=== PATIENT | female | born 1940 | race Caucasian/White ===

== ENCOUNTER 2021-10-27 20:04 | Inpatient (IN) | payer MEDICARE ==
[~2021-10-27] VITALS: Ht 152.4 cm; Wt 51.3 kg
[2021-10-27 20:42] LABS: BASOPHILS % (AUTO) 0.5 % (0.0-5.0); EOSINOPHILS % (AUTO) 1.1 % (0.0-8.0); HEMATOCRIT 42.5 % (36-48); LYMPHOCYTES % (AUTO) 27.3 % (21.0-51.0); MEAN CORPUSCULAR HEMOGLOBIN 31.8 pg (27.0-33.0); MEAN CORPUSCULAR HGB CONC 34.4 g/dL (32.0-36.0); MEAN CORPUSCULAR VOLUME 92.6 fL (79-99); MONOCYTES % (AUTO) 7.9 % (3.0-13.0); NEUTROPHILS % (AUTO) 62.7 % (40.0-77.0); PLATELET COUNT (AUTO) 153 K/uL (130-400); RED BLOOD CELL COUNT(AUTO) 4.59 MIL/uL (4.00-5.50); RED CELL DISTRIBUTION WIDTH 12.3 % (11.0-15.5); WHITE BLOOD COUNT (AUTO) 7.6 K/uL (4.8-10.8)
[2021-10-27 20:54] LABS: CREATININE 0.7 mg/dL (0.5-1.5); POTASSIUM 3.5 mmol/L (3.5-5.1)
[2021-10-27 20:55] LABS: INR 1.06 (0.85-1.15); PROTHROMBIN TIME 11.5 SEC (9.6-11.6)
[2021-10-27 21:01] LABS: ALBUMIN 3.7 g/dL (3.5-5.0); BILIRUBIN,TOTAL 0.8 mg/dL (0.2-1.0); TOTAL PROTEIN, SERUM 7.5 g/dL (6.0-8.3)
[2021-10-27 21:05] LABS: B-TYPE NATRIURETIC PEPTIDE 273 pg/mL (0-100)
[2021-10-27] MEDS ORDERED: CLOPIDOGREL 300MG TAB PO ONE (23:30)
[2021-10-27] MEDS: NITROGLYCERIN 1GM OINT 1 INCH/1GM TD SCH (23:30)
[2021-10-27] MEDS ORDERED: 0.9%NACL 1000ML 1,000 ML IV SCH (23:30)
[2021-10-27] MEDS ORDERED: ONDANSETRON 4MG INJ IV PRN (23:30)
[2021-10-28] VITALS (11 sets, daily range): BP systolic 112–158; BP diastolic 57–93
[2021-10-28] MEDS ORDERED: HEPARIN 25,000 UNITS/250ML D5W 250 ML IV SCH (00:30)
[2021-10-28] MEDS ORDERED: PHARMACY COMMUNICATION MISC SCH (00:30)
[2021-10-28] MEDS ORDERED: HEPARIN 5,000 UNIT VIAL SQ PRN (00:30)
[2021-10-28 01:07] LABS: INR 1.09 (0.85-1.15); PARTIAL THROMBOPLASTIN TIME 23.4 SEC (26.3-35.5); PROTHROMBIN TIME 11.8 SEC (9.6-11.6)
[2021-10-28] MEDS ORDERED: CLOPIDOGREL 300MG TAB ONE (01:30)
[2021-10-28 04:09] LABS: BASOPHILS % (AUTO) 0.7 % (0.0-5.0); EOSINOPHILS % (AUTO) 0.5 % (0.0-8.0); HEMATOCRIT 39.4 % (36-48); LYMPHOCYTES % (AUTO) 22.7 % (21.0-51.0); MEAN CORPUSCULAR HEMOGLOBIN 32.2 pg (27.0-33.0); MEAN CORPUSCULAR HGB CONC 34.8 g/dL (32.0-36.0); MEAN CORPUSCULAR VOLUME 92.7 fL (79-99); MONOCYTES % (AUTO) 7.7 % (3.0-13.0); NEUTROPHILS % (AUTO) 68.1 % (40.0-77.0); PLATELET COUNT (AUTO) 160 K/uL (130-400); RED BLOOD CELL COUNT(AUTO) 4.25 MIL/uL (4.00-5.50); RED CELL DISTRIBUTION WIDTH 12.2 % (11.0-15.5); WHITE BLOOD COUNT (AUTO) 8.6 K/uL (4.8-10.8)
[2021-10-28 04:40] LABS: CREATININE 0.6 mg/dL (0.5-1.5); MAGNESIUM 1.6 mg/dL (1.80-2.40); PHOSPHORUS 4.1 mg/dL (2.5-4.9); THYROID STIMULATING HORMONE 2.04 uIU/mL (0.36-3.74)
[2021-10-28] MEDS ORDERED: POTASSIUM CHLORIDE 20MEQ/100ML 100 ML IV PRN ×2 (05:00)
[2021-10-28] MEDS ORDERED: LIDOCAINE HCL-MPF 1% 2ML VIAL IV PRN ×2 (05:00)
[2021-10-28] MEDS ORDERED: HYDR12.54 PO (06:16)
[2021-10-28] MEDS ORDERED: LISI40TA9 PO (06:16)
[2021-10-28] MEDS ORDERED: ASPI-1443 PO (06:18)
[2021-10-28] MEDS ORDERED: ATOR40TA71 PO (06:18)
[2021-10-28] MEDS ORDERED: METO50 PO (06:18)
[2021-10-28] MEDS: MAGNESIUM 2GM PREMIX 50ML 50 ML IV PRN (06:22)
[2021-10-28] MEDS: KCL 20 MEQ ERTAB PO PRN ×4 (06:24→22:14)
[2021-10-28] MEDS: NITROGLYCERIN 1GM OINT 1 INCH/1GM TD SCH (07:02)
[2021-10-28] MEDS ORDERED: CLOPIDOGREL 75MG TAB PO SCH (09:00)
[2021-10-28] MEDS ORDERED: ENOXAPARIN SODIUM 40 MG/0.4 ML SYRINGE SQ SCH (09:00)
[2021-10-28 09:08] LABS: APPEARANCE,URINE Clear (CLEAR); BILIRUBIN,URINE Negative (NEGATIVE); COLOR,URINE Yellow (YELLOW); GLUCOSE, URINE (UA) Negative (NEGATIVE); KETONES,URINE 40 mg/dL (NEGATIVE); LEUKOCYTE ESTERASE ,URINE Moderate (NEGATIVE); NITRATE,URINE Negative (NEGATIVE); OCCULT BLOOD,URINE Negative (NEGATIVE); PH,URINE 6.5 (5.0-8.0); PROTEIN,URINE Negative (NEGATIVE)
[2021-10-28] MEDS: ASPIRIN 81MG CHEW TAB PO SCH (09:09)
[2021-10-28] MEDS: FAMOTIDINE 20MG TAB PO SCH (09:09)
[2021-10-28 09:36] LABS: BACTERIA,URINE Rare /HPF (None Seen); RBC,URINE 0-1 /HPF (0-1); SQUAMOUS EPITHELIAL CELL,UR Rare /HPF (0-2)
[2021-10-28] MEDS ORDERED: LIDOCAINE HCL 1% 20 ML VIAL ONE (09:57)
[2021-10-28] MEDS ORDERED: BIVALIRUDIN 250 MG/VIAL IV ONE (09:57)
[2021-10-28] MEDS ORDERED: IOHEXOL 350 MG/ML 100ML INFUS..BTL IV ONE (09:58)
[2021-10-28] MEDS ORDERED: HEPARIN 10,000 UNIT/10ML (1,000 UNIT/ML) VIAL ONE (09:58)
[2021-10-28] MEDS ORDERED: NITROGLYCERIN 50MG VIAL ONE (09:58)
[2021-10-28] MEDS ORDERED: IOHEXOL-350 50ML VIAL IV ONE (09:58)
[2021-10-28] MEDS ORDERED: MIDAZOLAM HCL 1 MG/ML 2ML VIAL ONE (10:39)
[2021-10-28] MEDS ORDERED: FENTANYL CITRATE PF 50 MCG/1 ML 2ML VIAL ONE ×2 (10:39→12:07)
[2021-10-28] MEDS ORDERED: LISINOPRIL 40 MG TABLET PO SCH (10:53)
[2021-10-28 10:59] LABS: CREATININE 0.7 mg/dL (0.5-1.5); POTASSIUM 3.3 mmol/L (3.5-5.1)
[2021-10-28 11:14] LABS: CHOLESTEROL 148 mg/dL (<200); HDL CHOLESTEROL 67 mg/dL (35-85); LDL DIRECT 69 mg/dL (0-99); TRIGLYCERIDES 55 mg/dL (30-200)
[2021-10-28] MEDS ORDERED: 0.9%NACL 1000ML 1,000 ML IV SCH (13:00)
[2021-10-28 15:37] LABS: ABG BASE EXCESS -2.7 mmol/L (-2.0-3.0); ABG HCO3 21.6 mmol/L (21.0-28.0); ABG OXYGEN SATURATION 96.6 % (95.0-99.0); ABG PCO2 36 mmHg (32-45)
[2021-10-28] MEDS: ATORVASTATIN 40 MG TABLET PO SCH (20:47)
[2021-10-28] MEDS: METOPROLOL TARTRATE 25 MG TAB PO SCH (20:47)
[2021-10-29] VITALS (14 sets, daily range): BP systolic 81–186; BP diastolic 41–81
[2021-10-29 04:22] LABS: HEMATOCRIT 37.3 % (36-48); MEAN CORPUSCULAR HEMOGLOBIN 31.5 pg (27.0-33.0); MEAN CORPUSCULAR HGB CONC 33.8 g/dL (32.0-36.0); MEAN CORPUSCULAR VOLUME 93.3 fL (79-99); RED CELL DISTRIBUTION WIDTH 12.3 % (11.0-15.5); WHITE BLOOD COUNT (AUTO) 5.5 K/uL (4.8-10.8)
[2021-10-29 04:43] LABS: ALBUMIN 3.1 g/dL (3.5-5.0); BILIRUBIN,TOTAL 0.9 mg/dL (0.2-1.0); CREATININE 0.7 mg/dL (0.5-1.5); POTASSIUM 4.6 mmol/L (3.5-5.1); TOTAL PROTEIN, SERUM 6.6 g/dL (6.0-8.3)
[2021-10-29] MEDS ORDERED: NOREPINEPHRINE BITARTRATE 8 MG in DEXTROSE 5%-WATER 250 ML IV PRN (07:00)
[2021-10-29] MEDS ORDERED: EPINEPHRINE PF 1MG AMP 10 MG in 0.9% NACL 250ML 240 ML IV PRN ×2 (07:00→21:00)
[2021-10-29] MEDS ORDERED: AMINOCAPROIC ACID 5,000MG VIAL 15,000 MG in 0.9% NACL 500ML IV.SOLN 420 ML IV PRN (07:00)
[2021-10-29] MEDS: FAMOTIDINE 20MG TAB PO SCH (08:01)
[2021-10-29] MEDS: METOPROLOL TARTRATE 25 MG TAB PO SCH (08:01)
[2021-10-29] MEDS: ASPIRIN 81MG CHEW TAB PO SCH (08:01)
[2021-10-29] MEDS ORDERED: SODIUM BICARB 50MEQ 50ML VIAL 100 ML ONE ×2 (14:36→18:38)
[2021-10-29] MEDS ORDERED: NITROGLYCERIN 50MG/D5W 250ML 1 BOT ONE (14:39)
[2021-10-29] MEDS: CEFAZOLIN SODIUM 1 GM VIAL IVP PRN ×2 (15:32→18:50)
[2021-10-29] MEDS ORDERED: 0.9%NACL 1000ML 1,000 ML IV ONE ×2 (15:33→20:50)
[2021-10-29] MEDS ORDERED: ESMOLOL HCL 10 MG/ML 10 ML VIAL ONE ×2 (18:38→21:10)
[2021-10-29] MEDS ORDERED: HEPARIN 10,000 UNIT/10ML (1,000 UNIT/ML) VIAL ONE (18:38)
[2021-10-29] MEDS ORDERED: AMINOCAPROIC ACID 5,000MG VIAL ONE (18:38)
[2021-10-29] MEDS ORDERED: LIDOCAINE PF 100MG/5ML (2%) SYRINGE 5ML ONE (18:38)
[2021-10-29] MEDS ORDERED: NOREPINEPHRINE BITARTRATE 1 MG/1 ML ML IV ONE (18:38)
[2021-10-29] MEDS ORDERED: EPINEPHRINE PF 1MG AMP ONE (18:38)
[2021-10-29] MEDS ORDERED: PROTAMINE SULFATE 10 MG/ML 25ML VIAL IV ONE (18:38)
[2021-10-29] MEDS ORDERED: PROPOFOL 10 MG/ML 20ML VIAL IV ONE (18:38)
[2021-10-29] MEDS ORDERED: ROCURONIUM 10MG/1ML SYR 10 MG/ML ML ONE (18:39)
[2021-10-29] MEDS ORDERED: FENTANYL CITRATE PF 50 MCG/1 ML 20ML VIAL IJ ONE (18:52)
[2021-10-29] MEDS ORDERED: KETAMINE 50MG/ML SYRINGE 50 MG/ML DISP.SYRIN IV ONE (18:52)
[2021-10-29] MEDS ORDERED: MIDAZOLAM HCL 1 MG/ML 2ML VIAL ONE (18:52)
[2021-10-29] MEDS ORDERED: CEFAZOLIN SODIUM 1 GM VIAL ONE ×2 (18:56)
[2021-10-29] MEDS ORDERED: PAPAVERINE HCL 30 MG/ML 2ML VIAL ONE (18:56)
[2021-10-29 19:36] LABS: ABG BASE EXCESS -11.9 mmol/L (-2.0-3.0); ABG HCO3 13.8 mmol/L (21.0-28.0); ABG OXYGEN SATURATION 99.6 % (95.0-99.0); ABG PCO2 31 mmHg (32-45)
[2021-10-29] MEDS ORDERED: DEXTROSE 50%-WATER 50 ML DISP.SYRIN IV ONE (19:46)
[2021-10-29] MEDS ORDERED: SODIUM BICARB 50MEQ 50ML VIAL 150 ML ONE (19:52)
[2021-10-29 19:59] LABS: ABG BASE EXCESS 2.9 mmol/L (-2.0-3.0); ABG HCO3 29.1 mmol/L (21.0-28.0); ABG OXYGEN SATURATION 99.6 % (95.0-99.0); ABG PCO2 53 mmHg (32-45)
[2021-10-29 20:51] LABS: ABG BASE EXCESS -4.5 mmol/L (-2.0-3.0); ABG HCO3 21.9 mmol/L (21.0-28.0); ABG OXYGEN SATURATION 99.4 % (95.0-99.0); ABG PCO2 46 mmHg (32-45)
[2021-10-29] MEDS ORDERED: SODIUM BICARB 50MEQ 50ML VIAL 50 ML ONE (20:55)
[2021-10-29] MEDS ORDERED: EPHEDRINE SULFATE 50 MG/ML AMPULE ONE (20:57)
[2021-10-29] MEDS ORDERED: ACETAMINOPHEN 650 MG SUPPOSITORY RC PRN (21:00)
[2021-10-29] MEDS ORDERED: ACETAMINOPHEN 325 MG TAB PO PRN (21:00)
[2021-10-29] MEDS ORDERED: FAMOTIDINE 20MG VIAL IV SCH (21:00)
[2021-10-29] MEDS ORDERED: ONDANSETRON 4MG INJ IV PRN (21:00)
[2021-10-29] MEDS ORDERED: GLUCAGON 1MG KIT 1 MG ML IM PRN (21:00)
[2021-10-29] MEDS ORDERED: 0.9%NACL 1000ML 1,000 ML IV SCH (21:00)
[2021-10-29] MEDS ORDERED: INSULIN REGULAR, HUMAN 3ML 100 UNIT in 0.9%NACL 100ML 99 ML IV SCH ×2 (21:00)
[2021-10-29] MEDS ORDERED: ALBUMIN (HUMAN) 5% 250 ML IV PRN (21:00)
[2021-10-29] MEDS ORDERED: NOREPINEPHRIN 4MG/NS 250ML 250 ML IV PRN (21:00)
[2021-10-29] MEDS ORDERED: 0.9% NACL 500ML IV.SOLN 500 ML IV SCH (21:00)
[2021-10-29] MEDS ORDERED: 0.9%NACL 10ML VIAL IVP PRN (21:00)
[2021-10-29] MEDS ORDERED: AMINOCAPROIC ACID 5,000MG VIAL 15,000 MG in 0.9% NACL 250ML 250 ML IV SCH (21:00)
[2021-10-29] MEDS: ATORVASTATIN 40 MG TABLET PO SCH (21:00)
[2021-10-29] MEDS ORDERED: TRAMADOL HCL 50 MG TABLET PO PRN (21:00)
[2021-10-29] MEDS ORDERED: PROPOFOL 1000 MG/100 ML 100 ML IV PRN (21:00)
[2021-10-29] MEDS ORDERED: DEXTROSE 50%-WATER 50 ML DISP.SYRIN IV PRN (21:00)
[2021-10-29] MEDS ORDERED: MORPHINE 2 MG SYG IV PRN ×2 (21:00)
[2021-10-29] MEDS ORDERED: POTASSIUM PHOS 15 mMOL+NS250ML 250 ML IV PRN (21:00)
[2021-10-29] MEDS ORDERED: PHARMACY COMMUNICATION MISC SCH ×2 (21:30)
[2021-10-29 21:55] LABS: ABG BASE EXCESS -5.9 mmol/L (-2.0-3.0); ABG HCO3 19.5 mmol/L (21.0-28.0); ABG PCO2 38 mmHg (32-45)
[2021-10-29] MEDS: SODIUM BICARB 50MEQ 50ML VIAL IV PRN ×3 (22:05→23:58)
[2021-10-29] MEDS: POTASSIUM CHLORIDE 20MEQ/100ML 100 ML IV PRN ×3 (22:05→23:41)
[2021-10-29 22:07] LABS: HEMATOCRIT 24.9 % (36-48); MEAN CORPUSCULAR HEMOGLOBIN 32.2 pg (27.0-33.0); MEAN CORPUSCULAR HGB CONC 33.7 g/dL (32.0-36.0); MEAN CORPUSCULAR VOLUME 95.4 fL (79-99); RED BLOOD CELL COUNT(AUTO) 2.61 MIL/uL (4.00-5.50); RED CELL DISTRIBUTION WIDTH 12.4 % (11.0-15.5); WHITE BLOOD COUNT (AUTO) 15.1 K/uL (4.8-10.8)
[2021-10-29 22:26] LABS: INR 1.48 (0.85-1.15); PROTHROMBIN TIME 15.6 SEC (9.6-11.6)
[2021-10-29 22:27] LABS: CREATININE 0.7 mg/dL (0.5-1.5); MAGNESIUM 1.4 mg/dL (1.80-2.40); PARTIAL THROMBOPLASTIN TIME 33.1 SEC (26.3-35.5); PHOSPHORUS 4.3 mg/dL (2.5-4.9)
[2021-10-29 22:31] LABS: POTASSIUM 2.9 mmol/L (3.5-5.1)
[2021-10-29 22:48] LABS: ABG BASE EXCESS 4.3 mmol/L (-2.0-3.0); ABG HCO3 28.9 mmol/L (21.0-28.0); ABG PCO2 44 mmHg (32-45)
[2021-10-29] MEDS: MAGNESIUM 2GM PREMIX 50ML 50 ML IV PRN (22:48)
[2021-10-29] MEDS: CALCIUM GLUC 1GM 1 GM in 0.9%NACL 50ML 50 ML IV PRN (22:54)
[2021-10-29] MEDS ORDERED: ALBUMIN (HUMAN) 5% 250 ML IV ONE (23:12)
[2021-10-29] MEDS ORDERED: AMIODARONE 900MG VIAL IV ONE (23:22)
[2021-10-29] MEDS ORDERED: DEXTROSE 5%-WATER 100 ML IV ONE (23:23)
[2021-10-29] MEDS ORDERED: AMIODARONE 150MG VIAL ONE (23:24)
[2021-10-29] MEDS ORDERED: DEXTROSE 5%-WATER 500 ML IV ONE (23:25)
[2021-10-29] MEDS ORDERED: AMIODARONE 900MG VIAL 360 MG in DEXTROSE 5%-WATER 200 ML IV SCH (23:30)
[2021-10-29] MEDS ORDERED: AMIODARONE 900MG VIAL 150 MG in DEXTROSE 5%-WATER 100 ML IV SCH (23:30)
[2021-10-29] MEDS ORDERED: AMIODARONE 900MG VIAL 540 MG in DEXTROSE 5%-WATER 300 ML IV PRN (23:30)
[2021-10-29 23:55] LABS: ABG BASE EXCESS -1.7 mmol/L (-2.0-3.0); ABG HCO3 23.5 mmol/L (21.0-28.0); ABG OXYGEN SATURATION 98.1 % (95.0-99.0); ABG PCO2 42 mmHg (32-45)
[2021-10-30] VITALS (83 sets, daily range): BP systolic 28–196; BP diastolic 1–100
[2021-10-30] MEDS: SODIUM BICARB 50MEQ 50ML VIAL IV PRN (00:02)
[2021-10-30] MEDS: CALCIUM GLUC 1GM 1 GM in 0.9%NACL 50ML 50 ML IV PRN ×2 (00:38→05:25)
[2021-10-30 00:57] LABS: ABG BASE EXCESS -0.1 mmol/L (-2.0-3.0); ABG HCO3 24.8 mmol/L (21.0-28.0); ABG OXYGEN SATURATION 97.5 % (95.0-99.0); ABG PCO2 42 mmHg (32-45)
[2021-10-30] MEDS: MAGNESIUM 2GM PREMIX 50ML 50 ML IV PRN (00:58)
[2021-10-30] MEDS: CEFAZOLIN SODIUM 1 GM VIAL IV SCH ×3 (01:59→19:22)
[2021-10-30 02:11] LABS: ABG BASE EXCESS -0.5 mmol/L (-2.0-3.0); ABG HCO3 24.2 mmol/L (21.0-28.0); ABG OXYGEN SATURATION 98.3 % (95.0-99.0); ABG PCO2 40 mmHg (32-45)
[2021-10-30] MEDS: POTASSIUM CHLORIDE 20MEQ/100ML 100 ML IV PRN ×4 (02:12→05:50)
[2021-10-30 03:03] LABS: ABG BASE EXCESS 1.3 mmol/L (-2.0-3.0); ABG HCO3 25.6 mmol/L (21.0-28.0); ABG OXYGEN SATURATION 98.6 % (95.0-99.0); ABG PCO2 39 mmHg (32-45)
[2021-10-30 03:36] LABS: HEMATOCRIT 28.9 % (36-48); MEAN CORPUSCULAR HGB CONC 33.9 g/dL (32.0-36.0); MEAN CORPUSCULAR VOLUME 94.4 fL (79-99); RED BLOOD CELL COUNT(AUTO) 3.06 MIL/uL (4.00-5.50); RED CELL DISTRIBUTION WIDTH 13.2 % (11.0-15.5); WHITE BLOOD COUNT (AUTO) 12.1 K/uL (4.8-10.8)
[2021-10-30] MEDS ORDERED: LIDOCAINE 2G/250ML 250 ML IV ONE (03:42)
[2021-10-30] MEDS ORDERED: LIDOCAINE PF 100MG/5ML (2%) SYRINGE 5ML ONE (03:44)
[2021-10-30 03:49] LABS: INR 1.31 (0.85-1.15); PROTHROMBIN TIME 13.9 SEC (9.6-11.6)
[2021-10-30 03:50] LABS: PARTIAL THROMBOPLASTIN TIME 33.9 SEC (26.3-35.5)
[2021-10-30 03:53] LABS: MAGNESIUM 2.7 mg/dL (1.80-2.40); PHOSPHORUS 2.1 mg/dL (2.5-4.9); POTASSIUM 4.1 mmol/L (3.5-5.1)
[2021-10-30] MEDS ORDERED: LIDOCAINE 2G/250ML 250 ML IV SCH (04:00)
[2021-10-30 04:11] LABS: ABG BASE EXCESS 0.1 mmol/L (-2.0-3.0); ABG HCO3 24.4 mmol/L (21.0-28.0); ABG OXYGEN SATURATION 98.2 % (95.0-99.0); ABG PCO2 38 mmHg (32-45)
[2021-10-30] MEDS ORDERED: PHARMACY COMMUNICATION MISC SCH ×2 (04:30→22:00)
[2021-10-30 05:23] LABS: ABG BASE EXCESS 2.9 mmol/L (-2.0-3.0); ABG HCO3 27.5 mmol/L (21.0-28.0); ABG OXYGEN SATURATION 98.4 % (95.0-99.0); ABG PCO2 42 mmHg (32-45)
[2021-10-30 06:14] LABS: ABG BASE EXCESS 2.3 mmol/L (-2.0-3.0); ABG HCO3 26.5 mmol/L (21.0-28.0); ABG OXYGEN SATURATION 98.4 % (95.0-99.0); ABG PCO2 40 mmHg (32-45)
[2021-10-30 07:07] LABS: BASOPHILS % (AUTO) 0.3 % (0.0-5.0); HEMATOCRIT 26.2 % (36-48); LYMPHOCYTES % (AUTO) 3.4 % (21.0-51.0); MEAN CORPUSCULAR HEMOGLOBIN 31.8 pg (27.0-33.0); MEAN CORPUSCULAR VOLUME 93.6 fL (79-99); MONOCYTES % (AUTO) 5.1 % (3.0-13.0); NEUTROPHILS % (AUTO) 90.5 % (40.0-77.0); PLATELET COUNT (AUTO) 99 K/uL (130-400); RED CELL DISTRIBUTION WIDTH 13.3 % (11.0-15.5); WHITE BLOOD COUNT (AUTO) 10.3 K/uL (4.8-10.8)
[2021-10-30 07:14] LABS: CREATININE 1.1 mg/dL (0.5-1.5); MAGNESIUM 2.4 mg/dL (1.80-2.40); POTASSIUM 4.4 mmol/L (3.5-5.1)
[2021-10-30 07:49] LABS: ABG BASE EXCESS 3.1 mmol/L (-2.0-3.0); ABG HCO3 27.5 mmol/L (21.0-28.0); ABG OXYGEN SATURATION 98.6 % (95.0-99.0); ABG PCO2 41 mmHg (32-45)
[2021-10-30] MEDS: ASPIRIN 81MG CHEW TAB PO SCH (09:32)
[2021-10-30] MEDS: FAMOTIDINE 20MG VIAL IV SCH (09:32)
[2021-10-30] MEDS: TRAMADOL HCL 50 MG TABLET PO PRN (09:33)
[2021-10-30 10:07] LABS: ABG PCO2 50 mmHg (32-45)
[2021-10-30] MEDS ORDERED: ALBUMIN (HUMAN) 5% 250 ML IV ONE (10:54)
[2021-10-30 11:06] LABS: ABG BASE EXCESS 2.1 mmol/L (-2.0-3.0); ABG HCO3 27.6 mmol/L (21.0-28.0); ABG OXYGEN SATURATION 98.2 % (95.0-99.0); ABG PCO2 48 mmHg (32-45)
[2021-10-30 12:04] LABS: ABG HCO3 28.5 mmol/L (21.0-28.0); ABG OXYGEN SATURATION 95.8 % (95.0-99.0); ABG PCO2 55 mmHg (32-45)
[2021-10-30] MEDS ORDERED: IPRATROPIUM 0.5 MG/2.5 ML INH IH PRN (12:30)
[2021-10-30 12:45] LABS: MAGNESIUM 2.2 mg/dL (1.80-2.40); POTASSIUM 5.1 mmol/L (3.5-5.1)
[2021-10-30] MEDS ORDERED: CALCIUM GLUC 1GM/10ML VIAL ONE (13:22)
[2021-10-30 13:58] LABS: ABG BASE EXCESS 1.3 mmol/L (-2.0-3.0); ABG HCO3 27.6 mmol/L (21.0-28.0); ABG OXYGEN SATURATION 97.9 % (95.0-99.0); ABG PCO2 52 mmHg (32-45)
[2021-10-30 15:56] LABS: ABG BASE EXCESS 2.8 mmol/L (-2.0-3.0); ABG OXYGEN SATURATION 96.8 % (95.0-99.0); ABG PCO2 54 mmHg (32-45)
[2021-10-30] MEDS: SOLU-MEDROL 40MG VIAL IVP SCH ×2 (16:28→22:00)
[2021-10-30] MEDS: BUDESONIDE 0.25 MG/2 ML INH IH SCH (18:16)
[2021-10-30 18:18] LABS: ABG BASE EXCESS 2.6 mmol/L (-2.0-3.0); ABG HCO3 28.1 mmol/L (21.0-28.0); ABG OXYGEN SATURATION 94.9 % (95.0-99.0); ABG PCO2 48 mmHg (32-45)
[2021-10-30] MEDS ORDERED: CEFAZOLIN SODIUM 1 GM VIAL ONE (19:21)
[2021-10-30] MEDS ORDERED: NOREPINEPHRIN 8MG/250ML NS PMX 250 ML IV ONE (19:46)
[2021-10-30] MEDS: ATORVASTATIN 40 MG TABLET PO SCH (20:24)
[2021-10-30] MEDS: ACETAMINOPHEN 325 MG TAB PO PRN (20:25)
[2021-10-31] VITALS (29 sets, daily range): BP systolic 90–153; BP diastolic 46–83
[2021-10-31] MEDS: SOLU-MEDROL 40MG VIAL IVP SCH ×4 (03:58→20:24)
[2021-10-31 04:07] LABS: HEMATOCRIT 23.3 % (36-48); MEAN CORPUSCULAR HEMOGLOBIN 31.9 pg (27.0-33.0); MEAN CORPUSCULAR HGB CONC 33.9 g/dL (32.0-36.0); RED BLOOD CELL COUNT(AUTO) 2.48 MIL/uL (4.00-5.50); RED CELL DISTRIBUTION WIDTH 13.7 % (11.0-15.5); WHITE BLOOD COUNT (AUTO) 14.3 K/uL (4.8-10.8)
[2021-10-31 04:19] LABS: CREATININE 0.8 mg/dL (0.5-1.5); MAGNESIUM 1.9 mg/dL (1.80-2.40); PHOSPHORUS 6.1 mg/dL (2.5-4.9); POTASSIUM 5.1 mmol/L (3.5-5.1)
[2021-10-31] MEDS: MAGNESIUM 2GM PREMIX 50ML 50 ML IV PRN (04:22)
[2021-10-31] MEDS: FAMOTIDINE 20MG VIAL IV SCH (07:57)
[2021-10-31] MEDS: ASPIRIN 81MG CHEW TAB PO SCH (07:58)
[2021-10-31] MEDS ORDERED: FUROSEMIDE 20MG VIAL IV SCH (09:30)
[2021-10-31] MEDS: METOPROLOL TARTRATE 25 MG TAB PO SCH ×2 (10:13→20:24)
[2021-10-31] MEDS: TRAMADOL HCL 50 MG TABLET PO PRN (14:02)
[2021-10-31] MEDS: FUROSEMIDE 20MG VIAL IV SCH (16:31)
[2021-10-31] MEDS: ATORVASTATIN 40 MG TABLET PO SCH (20:24)
[2021-10-31] MEDS ORDERED: [UNRECOGNIZED DRUG - REMARK] PO SCH (21:00)
[2021-11-01] VITALS (24 sets, daily range): BP systolic 95–161; BP diastolic 44–101
[2021-11-01 03:57] LABS: HEMATOCRIT 22.4 % (36-48); MEAN CORPUSCULAR HEMOGLOBIN 31.8 pg (27.0-33.0); MEAN CORPUSCULAR VOLUME 96.1 fL (79-99); PLATELET COUNT (AUTO) 60 K/uL (130-400); RED BLOOD CELL COUNT(AUTO) 2.33 MIL/uL (4.00-5.50); RED CELL DISTRIBUTION WIDTH 13.5 % (11.0-15.5); WHITE BLOOD COUNT (AUTO) 15.3 K/uL (4.8-10.8)
[2021-11-01 04:10] LABS: CREATININE 1.4 mg/dL (0.5-1.5); POTASSIUM 4.8 mmol/L (3.5-5.1)
[2021-11-01] MEDS: SOLU-MEDROL 40MG VIAL IVP SCH ×3 (06:00→20:59)
[2021-11-01] MEDS: FUROSEMIDE 20MG VIAL IV SCH ×2 (06:03→16:32)
[2021-11-01] MEDS: BUDESONIDE 0.25 MG/2 ML INH IH SCH ×2 (06:29→18:39)
[2021-11-01] MEDS: ASPIRIN 81MG CHEW TAB PO SCH (08:25)
[2021-11-01] MEDS: FAMOTIDINE 20MG TAB PO SCH (08:25)
[2021-11-01] MEDS: METOPROLOL TARTRATE 25 MG TAB PO SCH ×3 (08:26→20:18)
[2021-11-01] MEDS ORDERED: PHARMACY COMMUNICATION MISC SCH (14:30)
[2021-11-01] MEDS: ATORVASTATIN 40 MG TABLET PO SCH (20:18)
[2021-11-02] MEDS: ACETAMINOPHEN 325 MG TAB PO PRN (00:46)
[2021-11-02 03:46] LABS: HEMATOCRIT 24.2 % (36-48); MEAN CORPUSCULAR HEMOGLOBIN 31.5 pg (27.0-33.0); MEAN CORPUSCULAR HGB CONC 33.5 g/dL (32.0-36.0); MEAN CORPUSCULAR VOLUME 94.2 fL (79-99); NUCLEATED RED BLOOD CELLS 0.1 % (0.0-0.19); RED BLOOD CELL COUNT(AUTO) 2.57 MIL/uL (4.00-5.50); WHITE BLOOD COUNT (AUTO) 17.8 K/uL (4.8-10.8)
[2021-11-02 03:48] VITALS: BP 155/71
[2021-11-02 04:02] LABS: CREATININE 1.4 mg/dL (0.5-1.5); MAGNESIUM 2.1 mg/dL (1.80-2.40); POTASSIUM 4.5 mmol/L (3.5-5.1)
[2021-11-02] MEDS: BUDESONIDE 0.25 MG/2 ML INH IH SCH ×2 (06:40→18:50)
[2021-11-02 08:00] VITALS: BP 160/84
[2021-11-02] MEDS: SOLU-MEDROL 40MG VIAL IVP SCH (08:08)
[2021-11-02] MEDS: FAMOTIDINE 20MG TAB PO SCH (08:08)
[2021-11-02] MEDS: METOPROLOL TARTRATE 25 MG TAB PO SCH ×3 (08:08→20:16)
[2021-11-02] MEDS: ASPIRIN 81MG CHEW TAB PO SCH (08:09)
[2021-11-02] MEDS ORDERED: FUROSEMIDE 20 MG TABLET PO SCH (09:00)
[2021-11-02 11:23] VITALS: BP 148/85
[2021-11-02 16:00] VITALS: BP 148/83
[2021-11-02 19:31] VITALS: BP 161/91
[2021-11-02] MEDS: ATORVASTATIN 40 MG TABLET PO SCH (20:16)
[2021-11-02] MEDS: FUROSEMIDE 20 MG TABLET PO SCH (20:17)
[2021-11-02 23:43] VITALS: BP 151/91
[2021-11-03 03:18] VITALS: BP 142/75
[2021-11-03 03:52] LABS: HEMATOCRIT 23.2 % (36-48); MEAN CORPUSCULAR HEMOGLOBIN 31.4 pg (27.0-33.0); MEAN CORPUSCULAR HGB CONC 33.2 g/dL (32.0-36.0); MEAN CORPUSCULAR VOLUME 94.7 fL (79-99); NUCLEATED RED BLOOD CELLS 0.2 % (0.0-0.19); RED BLOOD CELL COUNT(AUTO) 2.45 MIL/uL (4.00-5.50); RED CELL DISTRIBUTION WIDTH 12.7 % (11.0-15.5); WHITE BLOOD COUNT (AUTO) 10.6 K/uL (4.8-10.8)
[2021-11-03 03:58] LABS: CREATININE 1.1 mg/dL (0.5-1.5); POTASSIUM 3.5 mmol/L (3.5-5.1)
[2021-11-03] MEDS: POTASSIUM CHLORIDE 10% ELIXIR 20 MEQ/15 ML UDCUP PO PRN ×2 (05:05→07:54)
[2021-11-03] MEDS: FUROSEMIDE 20 MG TABLET PO SCH ×3 (06:42→20:06)
[2021-11-03] MEDS: BUDESONIDE 0.25 MG/2 ML INH IH SCH ×2 (06:50→18:41)
[2021-11-03] MEDS: ASPIRIN 81MG CHEW TAB PO SCH (07:51)
[2021-11-03] MEDS: FAMOTIDINE 20MG TAB PO SCH (07:52)
[2021-11-03] MEDS: METOPROLOL TARTRATE 25 MG TAB PO SCH ×3 (07:52→20:06)
[2021-11-03 08:00] VITALS: BP 135/69
[2021-11-03] MEDS: POTASSIUM CHLORIDE 10MEQ SR TAB PO SCH (09:00)
[2021-11-03] MEDS: CLOPIDOGREL 75MG TAB PO SCH (09:00)
[2021-11-03] MEDS: TRAMADOL HCL 50 MG TABLET PO PRN (11:15)
[2021-11-03] MEDS: ENOXAPARIN SODIUM 30 MG/0.3 ML SQ SCH (11:42)
[2021-11-03] MEDS: LORATADINE 10 MG TABLET PO SCH (11:42)
[2021-11-03 12:00] VITALS: BP 141/57
[2021-11-03 15:26] VITALS: BP 122/72
[2021-11-03 19:19] VITALS: BP 127/67
[2021-11-03] MEDS: ATORVASTATIN 40 MG TABLET PO SCH (20:06)
[2021-11-04 02:32] VITALS: BP 151/86
[2021-11-04 03:52] LABS: HEMATOCRIT 33.7 % (36-48); MEAN CORPUSCULAR HEMOGLOBIN 31.3 pg (27.0-33.0); MEAN CORPUSCULAR HGB CONC 34.1 g/dL (32.0-36.0); MEAN CORPUSCULAR VOLUME 91.8 fL (79-99); NUCLEATED RED BLOOD CELLS 0.2 % (0.0-0.19); RED BLOOD CELL COUNT(AUTO) 3.67 MIL/uL (4.00-5.50); WHITE BLOOD COUNT (AUTO) 10.8 K/uL (4.8-10.8)
[2021-11-04 04:05] LABS: CREATININE 0.9 mg/dL (0.5-1.5); MAGNESIUM 1.8 mg/dL (1.80-2.40); POTASSIUM 3.1 mmol/L (3.5-5.1)
[2021-11-04] MEDS: KCL 20 MEQ ERTAB PO PRN (05:27)
[2021-11-04] MEDS: BUDESONIDE 0.25 MG/2 ML INH IH SCH ×2 (06:34→18:29)
[2021-11-04] MEDS: ACETAMINOPHEN 325 MG TAB PO PRN (06:34)
[2021-11-04 08:57] VITALS: BP 148/87
[2021-11-04] MEDS: POTASSIUM CHLORIDE 10MEQ SR TAB PO SCH (09:00)
[2021-11-04] MEDS ORDERED: LISINOPRIL 5 MG TABLET PO SCH (09:00)
[2021-11-04] MEDS: ENOXAPARIN SODIUM 30 MG/0.3 ML SQ SCH (11:18)
[2021-11-04] MEDS: POTASSIUM CHLORIDE 10% ELIXIR 20 MEQ/15 ML UDCUP PO PRN ×2 (11:19→13:19)
[2021-11-04] MEDS: LORATADINE 10 MG TABLET PO SCH (11:19)
[2021-11-04] MEDS: ASPIRIN 81MG CHEW TAB PO SCH (11:19)
[2021-11-04] MEDS: METOPROLOL TARTRATE 25 MG TAB PO SCH ×2 (11:20→20:40)
[2021-11-04] MEDS: FAMOTIDINE 20MG TAB PO SCH (11:20)
[2021-11-04] MEDS: CLOPIDOGREL 75MG TAB PO SCH (11:20)
[2021-11-04] MEDS: FUROSEMIDE 20 MG TABLET PO SCH ×2 (11:21→20:41)
[2021-11-04 11:33] VITALS: BP 149/80
[2021-11-04 16:22] VITALS: BP 160/84
[2021-11-04 19:35] VITALS: BP 148/78
[2021-11-04] MEDS: ATORVASTATIN 40 MG TABLET PO SCH (20:41)
[2021-11-04 23:40] VITALS: BP 139/76
[2021-11-05 04:18] VITALS: BP 130/74
[2021-11-05 04:23] LABS: HEMATOCRIT 32.3 % (36-48); MEAN CORPUSCULAR HEMOGLOBIN 30.4 pg (27.0-33.0); MEAN CORPUSCULAR HGB CONC 33.1 g/dL (32.0-36.0); MEAN CORPUSCULAR VOLUME 91.8 fL (79-99); RED BLOOD CELL COUNT(AUTO) 3.52 MIL/uL (4.00-5.50); RED CELL DISTRIBUTION WIDTH 13.8 % (11.0-15.5); WHITE BLOOD COUNT (AUTO) 6.8 K/uL (4.8-10.8)
[2021-11-05 04:32] LABS: CREATININE 0.7 mg/dL (0.5-1.5)
[2021-11-05 04:33] LABS: POTASSIUM 2.8 mmol/L (3.5-5.1)
[2021-11-05] MEDS: POTASSIUM CHLORIDE 10% ELIXIR 20 MEQ/15 ML UDCUP PO PRN ×6 (05:06→18:49)
[2021-11-05] MEDS: MAGNESIUM 2GM PREMIX 50ML 50 ML IV PRN (05:07)
[2021-11-05] MEDS: BUDESONIDE 0.25 MG/2 ML INH IH SCH ×2 (06:59→18:37)
[2021-11-05 07:00] VITALS: BP 136/89
[2021-11-05 11:00] VITALS: BP 150/86
[2021-11-05] MEDS: ASPIRIN 81MG CHEW TAB PO SCH (11:03)
[2021-11-05] MEDS: LORATADINE 10 MG TABLET PO SCH (11:04)
[2021-11-05] MEDS: ENOXAPARIN SODIUM 30 MG/0.3 ML SQ SCH (11:04)
[2021-11-05] MEDS: FAMOTIDINE 20MG TAB PO SCH (11:04)
[2021-11-05] MEDS: CLOPIDOGREL 75MG TAB PO SCH (11:04)
[2021-11-05] MEDS: METOPROLOL SUCCINATE 50 MG TAB.SR.24H PO SCH (11:05)
[2021-11-05] MEDS: FUROSEMIDE 20 MG TABLET PO SCH (11:05)
[2021-11-05] MEDS: POTASSIUM CHLORIDE 10MEQ SR TAB PO SCH (11:05)
[2021-11-05] MEDS ORDERED: LISINOPRIL 2.5 MG TABLET ONE (11:11)
[2021-11-05] MEDS ORDERED: LISINOPRIL 5 MG TABLET PO SCH (11:39)
[2021-11-05 16:00] VITALS: BP 141/75
[2021-11-05] MEDS: ACETAMINOPHEN 325 MG TAB PO PRN (18:48)
[2021-11-05 19:15] VITALS: BP 144/82
[2021-11-05] MEDS: ATORVASTATIN 40 MG TABLET PO SCH (20:45)
[2021-11-05 23:56] VITALS: BP 151/74
[2021-11-06] MEDS: ACETAMINOPHEN 325 MG TAB PO PRN ×2 (03:04→10:51)
[2021-11-06 04:35] VITALS: BP 157/79
[2021-11-06 04:49] LABS: CREATININE 0.7 mg/dL (0.5-1.5); MAGNESIUM 1.9 mg/dL (1.80-2.40); POTASSIUM 3.5 mmol/L (3.5-5.1)
[2021-11-06] MEDS: BUDESONIDE 0.25 MG/2 ML INH IH SCH (06:22)
[2021-11-06] MEDS: MAGNESIUM 2GM PREMIX 50ML 50 ML IV PRN (06:31)
[2021-11-06] MEDS: KCL 20 MEQ ERTAB PO PRN (06:31)
[2021-11-06] MEDS: ENOXAPARIN SODIUM 30 MG/0.3 ML SQ SCH (07:58)
[2021-11-06] MEDS: LORATADINE 10 MG TABLET PO SCH (07:58)
[2021-11-06] MEDS: METOPROLOL SUCCINATE 50 MG TAB.SR.24H PO SCH (07:59)
[2021-11-06] MEDS: FAMOTIDINE 20MG TAB PO SCH (07:59)
[2021-11-06] MEDS: ASPIRIN 81MG CHEW TAB PO SCH (07:59)
[2021-11-06] MEDS: FUROSEMIDE 20 MG TABLET PO SCH (07:59)
[2021-11-06] MEDS: CLOPIDOGREL 75MG TAB PO SCH (07:59)
[2021-11-06 08:00] VITALS: BP 167/85
[2021-11-06] MEDS: POTASSIUM CHLORIDE 10MEQ SR TAB PO SCH ×2 (08:02→08:05)
[2021-11-06] MEDS ORDERED: LISINOPRIL 5 MG TABLET PO SCH ×2 (09:00)
[2021-11-06] MEDS ORDERED: LORAZEPAM 0.5 MG TABLET PO SCH (09:00)
[2021-11-06] MEDS ORDERED: LISINOPRIL 5 MG TABLET ONE (09:07)
[2021-11-06] MEDS ORDERED: LISI10TA24 PO (09:12)
[2021-11-06] MEDS ORDERED: METO-391 PO (09:12)
[2021-11-06] MEDS ORDERED: FURO20TA4 PO (09:12)
[2021-11-06] MEDS ORDERED: FAMO10TA39 PO (09:12)
[2021-11-06] MEDS ORDERED: CLOP75TA14 PO (09:12)
[2021-11-06 12:00] VITALS: BP 122/72
== END 2021-11-06 13:45 | DRG 233 ==
LOC: EDH 20:04 → EDHIP 23:04 → 4AH 10-28 05:18 → 2CV 10-29 19:24 → 2CH 10-30 15:42 → 2AH 11-01 16:30
PROVIDERS: ADMIT Hospitalist; ATTEND Hospitalist
PROC: 4A023N7 Measurement of Cardiac Sampling and Pressure, Left Heart, Percutaneous Approach (ICD-10-PCS; 2021-10-28)
PROC: B2151ZZ Fluoroscopy of Left Heart using Low Osmolar Contrast (ICD-10-PCS; 2021-10-28)
PROC: B41F1ZZ Fluoroscopy of Right Lower Extremity Arteries using Low Osmolar Contrast (ICD-10-PCS; 2021-10-28)
PROC: B2111ZZ Fluoroscopy of Multiple Coronary Arteries using Low Osmolar Contrast (ICD-10-PCS; 2021-10-28)
PROC: 06B Lower Veins, Excision (ICD-10-PCS; 2021-10-29)
PROC: 5A1221Z Performance of Cardiac Output, Continuous (ICD-10-PCS; 2021-10-29)
PROC: 30233N1 Transfusion of Nonautologous Red Blood Cells into Peripheral Vein, Percutaneous Approach (ICD-10-PCS; 2021-10-29)
PROC: 02100Z9 Bypass Coronary Artery, One Artery from Left Internal Mammary, Open Approach (ICD-10-PCS; principal; 2021-10-29 12:00)
PROC: 021009W Bypass Coronary Artery, One Artery from Aorta with Autologous Venous Tissue, Open Approach (ICD-10-PCS; 2021-10-29 12:00)
PROC: 5A12012 Performance of Cardiac Output, Single, Manual (ICD-10-PCS; 2021-10-30)
DX: T82.855A Stenosis of coronary artery stent, initial encounter (principal); I21.4 Non-ST elevation (NSTEMI) myocardial infarction; I49.01 Ventricular fibrillation; I50.31 Acute diastolic (congestive) heart failure; N39.0 Urinary tract infection, site not specified; F10.231 Alcohol dependence with withdrawal delirium; E87.6 Hypokalemia; E78.5 Hyperlipidemia, unspecified; I25.2 Old myocardial infarction; E78.00 Pure hypercholesterolemia, unspecified; I11.0 Hypertensive heart disease with heart failure; Z20.822 Contact with and (suspected) exposure to COVID-19; E03.8 Other specified hypothyroidism; Z79.899 Other long term (current) drug therapy; Z98.51 Tubal ligation status; Z90.49 Acquired absence of other specified parts of digestive tract; Z87.891 Personal history of nicotine dependence; Z79.82 Long term (current) use of aspirin; J44.9 Chronic obstructive pulmonary disease, unspecified; I25.119 Atherosclerotic heart disease of native coronary artery with unspecified angina pectoris; D64.9 Anemia, unspecified; D69.59 Other secondary thrombocytopenia; F41.9 Anxiety disorder, unspecified; J98.4 Other disorders of lung; Y84.0 Cardiac catheterization as the cause of abnormal reaction of the patient, or of later complication, without mention of misadventure at the time of the procedure; Y92.89 Other specified places as the place of occurrence of the external cause; I25.5 Ischemic cardiomyopathy
CPT/HCPCS: 36415; 36430; 36600; 70450; 71045; 80048; 80053; 80061; 81001; 82330; 82435; 82550; 82803; 82947; 82948; 83605; 83690; 83735; 83880; 84100; 84132; 84295; 84443; 84484; 85018; 85025; 85027; 85347; 85610; 85730; 86022; 86850; 86870; 86900; 86901; 86922; 87040; 87071; 87088; 87205; 87635; 92950; 93005; 93306; 93308; 93356; 93458; 93880; 93970; 94002; 94003; 94010; 94640; 94660; 94664; 97039; 99156; 99157; A7048; C1760; C1894; G0378; J0171; J0282; J0583; J0610; J0690; J1644; J1650; J1815; J1940; J2001; J2250; J2440; J2704; J2720; J2920; J3010; J3475; J3480; J3490; J7030; J7040; J7060; J7070; P9016; P9045; Q9967